=== PATIENT | male | born 1995 | race Caucasian/White ===

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

== ENCOUNTER → 2017-03-06 | Outpatient (CLI) | payer OTHER ==
[2017-03-06 13:53] LABS: ALBUMIN 4.3 GM/DL (3.4-5.0); AST (GOT) 36 U/L (15-39); BICARBONATE 31.4 MEQ/L (21.0-32.0); BLOOD UREA NITROGEN 12 MG/DL (7-18); CALCIUM 9.3 MG/DL (8.5-10.1); CHLORIDE 105 MEQ/L (98-107); CHOLESTEROL 199 MG/DL (120-200); GLOMERULAR FILTRATION RATE 125 ML/MIN (>89); GLUCOSE,FASTING 85 MG/DL (74-99); SODIUM (NA) 140 MEQ/L (136-145)
[2017-03-06 14:02] LABS: ALKALINE PHOSPHATASE 143 U/L (45-117); ALT (GPT) 73 U/L (9-52); CHOLESTEROL/ HDL RATIO 3.56 RATIO; FREE T4 0.98 NG/DL (0.76-1.46); HDL CHOLESTEROL 55.8 MG/DL (40.0-60.0); LDL CHOLESTEROL 125 MG/DL (0-99); TOTAL BILIRUBIN ADULT 0.4 MG/DL (0.2-1.0); TOTAL PROTEIN 7.7 GM/DL (6.4-8.2); TRIGLYCERIDES 90 MG/DL (42-150)
[2017-03-07 19:53] LABS: C-PEPTIDE 2.47 ng/mL (0.80-3.85)
== END ==
LOC: PLAB 09:45
DX: E23.0 Hypopituitarism (principal)
CPT/HCPCS: 36415; 80053; 80061; 83525; 84305; 84439; 84443; 84681

== ENCOUNTER 2017-08-11 22:23 | Observation (INO) | payer OTHER ==
[~2017-08-11] VITALS: Ht 188 cm; Wt 130.3 kg
[2017-08-11 22:30] VITALS: BP 139/74; PULSE 88; RESP 20; TEMP 97.7; O2SAT 96
--- NOTE | 2017-08-11 22:50 | PD ---
HPI Chief Complaint: Foreign Body Time Seen by Provider: 22:44 Travel History International Travel<30 days: No Contact w/Intl Traveler<30days: No Traveled to known affect area: No History of Present Illness HPI 22-year-old male presents to the emergency department for complaint of retained esophageal foreign body. Patient has pre-existing history of retained esophageal foreign body secondary to fluid bolus requiring EGD evaluation and fluid bolus removal or dental passage into the stomach. Patient has pre- existing history of eosinophilic esophagitis with abnormal narrowing of the esophagus and esophagitis changes of the GE junction per previous procedure note by his spray drier Dr. phillip thompson. Patient has not had esophageal dilatation in the past. The patient rates his discomfort 0/10 intensity. Patient states symptoms began after eating chicken around 7 PM and then noticing that he could not ingest any further food and attempted to induce vomiting without success and to drink bolus of water that subsequently he also vomited. Patient continues to have foreign body sensation and continues to have to expectorate saliva. No drooling or airway compromise. No report of stridor or hoarseness. No chest pain. Patient is otherwise unable to identify exacerbating or alleviating factors. PFSH Past Medical History Narrative Medical Esophageal stricture eosinophilic esophagitis; tonsillectomy; no tobacco use; nursing notes reviewed Cardiovascular Problems: No Developmental Delay: No Gastrointestinal Disorders: Yes ("ESOPHAGEAL SPASMS" PER MOM) Genitourinary: No Neurologic: No Respiratory: No Immunizations Current: Yes Tetanus Vaccination: < 5 Years Influenza Vaccination: No Past Surgical History Abdominal Surgery: No Cardiac Surgery: No Ear Surgery: No Endocrine Surgery: Yes (tonsilectomy) Eye Surgery: No Genitourinary Surgery: No Gynecologic Surgery: No Neurologic Surgery: No Oral Surgery: No Thoracic Surgery: No Tonsillectomy: Yes Valve Replacement: No Other Surgery: Yes Social History Alcohol Use: Yes (OCC) Tobacco Use: No Substance Use: No Allergies-Medications (Allergen,Severity, Reaction): Coded Allergies: No Known Allergies (Verified Allergy, Unknown, 08/11/17) Reported Meds & Prescriptions Reported Meds & Active Scripts Active Reported Zyrtec 10 Mg Tab (Cetirizine HCl) 10 Mg Tab 10 Mg PO DAILY PRN Omnitrope (Somatropin) 10 Mg/1.5 Ml Inj 3.3 Mg SQ/IV HS Review of Systems Except as stated in HPI: all other systems reviewed are Neg Physical Exam Narrative GENERAL: Well-developed well-nourished male in no acute distress no respiratory distress no stridor or hoarseness. SKIN: Warm and dry. HEAD: Normocephalic. EYES: No scleral icterus. No injection or drainage. ENT: Mucous membranes moist airway is patent intermittent the patient is spitting out saliva NECK: Supple, trachea midline. No JVD or lymphadenopathy. CARDIOVASCULAR: Regular rate and rhythm without murmurs, gallops, or rubs. RESPIRATORY: Breath sounds equal bilaterally. No accessory muscle use. GASTROINTESTINAL: Abdomen soft, non-tender, nondistended. MUSCULOSKELETAL: No cyanosis, or edema. BACK: Nontender without obvious deformity. No CVA tenderness. Data Data Last Documented VS Vital Signs Date Time Temp Pulse Resp B/P (MAP) Pulse Ox O2 Delivery O2 Flow Rate FiO2 08/11/17 22:39 18 08/11/17 22:30 97.7 88 139/74 (95) 96 Orders Orders ^ Saline Lock (08/11/17 22:44) Metoclopramide Inj (Reglan Inj) (08/11/17 23:00) Glucagon Inj (Glucagon Inj) (08/11/17 23:00) Complete Blood Count With Diff (08/11/17 22:54) Act Partial Throm Time (Ptt) (08/11/17 22:54) Prothrombin Time / Inr (Pt) (08/11/17 22:54) Sodium Chlor 0.9% 1000 Ml Inj (Ns 1000 M (08/11/17 23:00) Basic Metabolic Panel (Bmp) (08/11/17 22:54) Place In Observation (08/11/17 ) Vital Signs (Adult) Q4H (08/11/17 22:56) Activity Oob Ad Bia (08/11/17 22:56) Intake + Output STEPHON.QSHIFT (08/11/17 22:56) Diet Npo (08/12/17 Breakfast) Sodium Chlor 0.9% 1000 Ml Inj (Ns 1000 M (08/11/17 22:56) Sodium Chloride 0.9% Flush (Ns Flush) (08/11/17 23:00) Sodium Chloride 0.9% Flush (Ns Flush) (08/12/17 09:00) Metoclopramide Inj (Reglan Inj) (08/11/17 23:00) Comprehensive Metabolic Panel (08/12/17 06:00) Complete Blood Count With Diff (08/12/17 06:00) Scd Bilateral/Knee High STEPHON.BID (08/11/17 22:56) Chon Bilateral/Knee High STEPHON.QSHIFT (08/11/17 23:00) Morphine Inj (Morphine Inj) (08/11/17 23:00) Morphine Inj (Morphine Inj) (08/11/17 23:00) Docusate Sodium-Senna (Hailey-Colace) (08/12/17 09:00) Magnesium Hydroxide Liq (Milk Of Magnesi (08/11/17 23:00) Sennosides (Senokot) (08/11/17 23:00) Bisacodyl Supp (Dulcolax Supp) (08/11/17 23:00) Lactulose Liq (Lactulose Liq) (08/11/17 23:00) Admit Order (Ed Use Only) (08/11/17 ) Vital Signs (Adult) Q4H (08/11/17 23:03) Activity Bed Rest (08/11/17 23:03) Notify Dr: Other (08/11/17 23:03) Consult Gastroenterology (08/11/17 ) Labs Laboratory Tests Test 08/11/17 22:58 White Blood Count 7.4 TH/MM3 Red Blood Count 5.04 MIL/MM3 Hemoglobin 15.2 GM/DL Hematocrit 45.7 % Mean Corpuscular Volume 90.8 FL Mean Corpuscular Hemoglobin 30.1 PG Mean Corpuscular Hemoglobin Concent 33.2 % Red Cell Distribution Width 11.5 % Platelet Count 223 TH/MM3 Mean Platelet Volume 8.8 FL Neutrophils (%) (Auto) 37.9 % Lymphocytes (%) (Auto) 45.6 % Monocytes (%) (Auto) 6.8 % Eosinophils (%) (Auto) 9.1 % Basophils (%) (Auto) 0.6 % Neutrophils # (Auto) 2.8 TH/MM3 Lymphocytes # (Auto) 3.4 TH/MM3 Monocytes # (Auto) 0.5 TH/MM3 Eosinophils # (Auto) 0.7 TH/MM3 Basophils # (Auto) 0.0 TH/MM3 CBC Comment DIFF FINAL Differential Comment Prothrombin Time 10.8 SEC Prothromb Time International Ratio 1.1 RATIO Activated Partial Thromboplast Time 27.5 SEC Blood Urea Nitrogen 12 MG/DL Creatinine 0.85 MG/DL Random Glucose 91 MG/DL Calcium Level 8.9 MG/DL Sodium Level 141 MEQ/L Potassium Level 3.8 MEQ/L Chloride Level 106 MEQ/L Carbon Dioxide Level 27.9 MEQ/L Anion Gap 7 MEQ/L Estimat Glomerular Filtration Rate 115 ML/MIN MDM Medical Decision Making Medical Screen Exam Complete: Yes Emergency Medical Condition: Yes Medical Record Reviewed: Yes Differential Diagnosis Retained esophageal foreign body, esophageal stenosis Narrative Course IV access obtained patient administered Reglan 10 mg IV and glucagon 1 MG IV basic labs collected; call placed to gastroenterology patient's case discussed with Dr. Mcclure -- aware patient h/o esophageal stricture and prior EGD by Dr Del Castillo ---recommends patient to be admitted to medicine service with consult to Dr. Morse in the a.m. for upper endoscopy and removal of foreign body but does concur with ongoing administration of glucagon discussed with Dr Florez @ 23:[address]clure --aware no relief following glucagon and reglan --will remove fb in AM, not tonight Physician Communication Physician Communication Discussed with Dr. Mcclure; call placed to Dr Florez's service Diagnosis Primary Impression: Esophageal foreign body Qualified Codes: T18.108A - Unspecified foreign body in esophagus causing other injury, initial encounter Admitting Information Admitting Physician Requests: Observation Melissa Johnson MD Aug 11, 2017 22:50
[2017-08-11] MEDS ORDERED: BISACODYL 10 MG SUPP RECTAL PRN (23:00)
[2017-08-11] MEDS ORDERED: SENNOSIDES 8.6 MG TAB PO PRN (23:00)
[2017-08-11] MEDS ORDERED: METOCLOPRAMIDE HCL 10 MG/2 ML VIAL IV PUSH PRN (23:00)
[2017-08-11] MEDS ORDERED: SODIUM CHLOR 0.9% 1000 ML INJ 1,000 ML IV SCH (23:00)
[2017-08-11] MEDS ORDERED: LACTULOSE SYRUP 20 GM/30 ML CUP PO PRN (23:00)
[2017-08-11] MEDS ORDERED: METOCLOPRAMIDE HCL 10 MG/2 ML VIAL IV PUSH ONE (23:00)
[2017-08-11] MEDS ORDERED: MAGNESIUM HYDROXIDE SUSP 30 ML CUP PO PRN (23:00)
[2017-08-11] MEDS ORDERED: MORPHINE SULFATE 2 MG/ML SYRINGE IV PUSH PRN ×2 (23:00)
[2017-08-11] MEDS ORDERED: GLUCAGON 1 MG/ML VIAL IV PUSH ONE (23:00)
[2017-08-11] MEDS ORDERED: SODIUM CHLORIDE 0.9% FLUSH 10 ML FLUSH IV FLUSH PRN (23:00)
[2017-08-11] MEDS: SODIUM CHLOR 0.9% 1000 ML INJ 1,000 ML IV SCH (23:05)
[2017-08-11 23:15] LABS: AUTOMATED NEUTROPHIL # 2.8 TH/MM3 (1.8-7.7); BASOPHIL % 0.6 % (0.0-2.0); EOSINOPHIL # 0.7 TH/MM3 (0-0.4); EOSINOPHIL % 9.1 % (0.0-4.0); HEMATOCRIT 45.7 % (39.0-51.0); HEMOGLOBIN 15.2 GM/DL (13.0-17.0); LYMPH % 45.6 % (9.0-44.0); LYMPHOCYTE # 3.4 TH/MM3 (1.0-4.8); MEAN CELL VOLUME 90.8 FL (80.0-100.0); MEAN CORPUSCULAR HEMOGLOBIN 30.1 PG (27.0-34.0); MEAN CORPUSCULAR HGB CONC 33.2 % (32.0-36.0); MEAN PLATELET VOLUME 8.8 FL (7.0-11.0); MONO % 6.8 % (0.0-8.0); MONOCYTE # 0.5 TH/MM3 (0-0.9); NEUT % 37.9 % (16.0-70.0); PLATELET COUNT 223 TH/MM3 (150-450); RED BLOOD COUNT 5.04 MIL/MM3 (4.50-5.90); RED CELL DISTRIBUTION WIDTH 11.5 % (11.6-17.2); WHITE BLOOD COUNT 7.4 TH/MM3 (4.0-11.0)
[2017-08-11 23:24] LABS: BICARBONATE 27.9 MEQ/L (21.0-32.0); CALCIUM 8.9 MG/DL (8.5-10.1)
[2017-08-11 23:27] LABS: INTERNATIONAL NORMALIZED RATIO 1.1 RATIO; PROTHROMBIN TIME - PATIENT 10.8 SEC (9.8-11.6)
[2017-08-11 23:28] LABS: CREATININE 0.85 MG/DL (0.60-1.30)
[2017-08-12 04:20] VITALS: BP 124/78; PULSE 88; RESP 16; O2SAT 98
[2017-08-12 06:16] VITALS: BP 130/65; PULSE 60; RESP 16
[2017-08-12 06:22] LABS: AUTOMATED NEUTROPHIL # 3.1 TH/MM3 (1.8-7.7); BASOPHIL # 0.1 TH/MM3 (0-0.2); BASOPHIL % 0.7 % (0.0-2.0); EOSINOPHIL # 0.7 TH/MM3 (0-0.4); EOSINOPHIL % 8.9 % (0.0-4.0); HEMATOCRIT 42.8 % (39.0-51.0); HEMOGLOBIN 14.2 GM/DL (13.0-17.0); LYMPH % 43.7 % (9.0-44.0); LYMPHOCYTE # 3.3 TH/MM3 (1.0-4.8); MEAN CORPUSCULAR HEMOGLOBIN 29.8 PG (27.0-34.0); MEAN CORPUSCULAR HGB CONC 33.1 % (32.0-36.0); MEAN PLATELET VOLUME 8.4 FL (7.0-11.0); MONO % 7.3 % (0.0-8.0); MONOCYTE # 0.6 TH/MM3 (0-0.9); NEUT % 39.4 % (16.0-70.0); PLATELET COUNT 202 TH/MM3 (150-450); RED BLOOD COUNT 4.76 MIL/MM3 (4.50-5.90); RED CELL DISTRIBUTION WIDTH 11.7 % (11.6-17.2); WHITE BLOOD COUNT 7.8 TH/MM3 (4.0-11.0)
[2017-08-12 06:25] LABS: CHLORIDE 109 MEQ/L (98-107); SODIUM (NA) 141 MEQ/L (136-145)
[2017-08-12 06:28] LABS: CALCIUM 8.6 MG/DL (8.5-10.1)
[2017-08-12 06:29] LABS: ALBUMIN 3.8 GM/DL (3.4-5.0); BICARBONATE 25.7 MEQ/L (21.0-32.0); BLOOD UREA NITROGEN 12 MG/DL (7-18); GLUCOSE,RANDOM 86 MG/DL (74-106)
[2017-08-12 06:32] LABS: ALT (GPT) 49 U/L (9-52); AST (GOT) 25 U/L (15-39); CREATININE 0.79 MG/DL (0.60-1.30); GLOMERULAR FILTRATION RATE 125 ML/MIN (>89)
[2017-08-12 06:34] LABS: TOTAL BILIRUBIN ADULT 0.5 MG/DL (0.2-1.0); TOTAL PROTEIN 6.9 GM/DL (6.4-8.2)
[2017-08-12 06:35] LABS: ALKALINE PHOSPHATASE 105 U/L (45-117)
[2017-08-12] MEDS: SODIUM CHLOR 0.9% 1000 ML INJ 1,000 ML IV SCH (08:23)
--- NOTE | 2017-08-12 08:37 | HHI.HP ---
[facility] Service [facility] Primary Care Physician No Primary Care Physician Admission Diagnosis esophageal FB Diagnoses: (1) Eosinophilic esophagitis Diagnosis: Principal (2) Esophageal foreign body Diagnosis: Principal Chief Complaint: Cannot swallow Travel History International Travel<30 Days: No Contact w/Intl Traveler <30 Da: No Traveled to Known Affected Are: No History of Present Illness Written by Omar Rothman, acting as scribe for Dr. Acosta on 08/12/17 at 08: 35. 22-year-old male with known history of eosinophilic esophagitis who presented to the hospital because he cannot swallow. Patient was in his normal state of health until last night when he is eating dinner and he felt the food gets lodged and he could not swallow. He cannot swallow liquids or solids. Patient had this happen multiple times in the past. He has undergone endoscopy in order to perform dilatation in the past. Since patient cannot swallow anything, he came to emergency department for evaluation. Because the patient' s symptoms did not resolve, it was recommended by ER physician the patient be observed in the hospital with GI consultation for endoscopy. ER physician did speak with the on-call folding machine operator who plans on performing endoscopy this morning. Otherwise pt feels well. Denies any CP/SOB/N/V Review of Systems Gastrointestinal: COMPLAINS OF: Difficulty Swallowing Except as stated in HPI: all other systems reviewed are Neg Past Family Social History Past Medical History Eosinophilic esophagitis Past Surgical History Previous endoscopies for esophageal dilatation Reported Medications Reported Meds & Active Scripts Active Reported Zyrtec 10 Mg Tab (Cetirizine HCl) 10 Mg Tab 10 Mg PO DAILY PRN Omnitrope (Somatropin) 10 Mg/1.5 Ml Inj 3.3 Mg SQ/IV HS Allergies: Coded Allergies: No Known Allergies (Verified Allergy, Unknown, 08/11/17) Family History Family history is reviewed and significant for father with diabetes, does not know his mother's history Social History Patient denies any tobacco alcohol or illicit drugs Physical Exam Vital Signs Vital Signs Date Time Temp Pulse Resp B/P (MAP) Pulse Ox O2 Delivery O2 Flow Rate FiO2 08/12/17 07:56 08/12/17 06:16 60 16 130/65 (86) Room Air 08/12/17 04:20 88 16 124/78 (93) 98 Room Air 08/11/17 22:39 18 08/11/17 22:30 97.7 88 20 139/74 (95) 96 Physical Exam GENERAL: Well-developed, well-nourished, in no acute distress. alert and orientated HEENT: Head is normocephalic without any lesions or masses noted. Facial features are symmetric. Eyes: Pupils equal round reactive to light. Extraocular muscles are intact. Conjunctivae were clear. Oropharyngeal: Pharynx without any erythema edema. Tongue is midline without deviation. Buccal mucosa is moist NECK: Supple without any masses. Trachea midline no deviation. No JVD CARDIAC: Regular rhythm, regular rate. S1/S2 are heard. No murmurs LUNGS: Clear to auscultation bilaterally. No wheeze. ABDOMEN: Soft, nontender. Nondistended. Bowel sounds heard in all 4 quadrants. Negative rebound, negative guarding EXTREMITIES: No edema, pulses are equal bilaterally. NEUROLOGY: Mood and affect appear appropriate. Cranial nerves II through XII grossly intact. Muscle strength 5/5 in upper and lower extremities bilaterally. Laboratory Laboratory Tests Test 08/11/17 22:58 08/12/17 06:12 White Blood Count 7.4 7.8 Red Blood Count 5.04 4.76 Hemoglobin 15.2 14.2 Hematocrit 45.7 42.8 Mean Corpuscular Volume 90.8 90.0 Mean Corpuscular Hemoglobin 30.1 29.8 Mean Corpuscular Hemoglobin Concent 33.2 33.1 Red Cell Distribution Width 11.5 11.7 Platelet Count 223 202 Mean Platelet Volume 8.8 8.4 Neutrophils (%) (Auto) 37.9 39.4 Lymphocytes (%) (Auto) 45.6 43.7 Monocytes (%) (Auto) 6.8 7.3 Eosinophils (%) (Auto) 9.1 8.9 Basophils (%) (Auto) 0.6 0.7 Neutrophils # (Auto) 2.8 3.1 Lymphocytes # (Auto) 3.4 3.3 Monocytes # (Auto) 0.5 0.6 Eosinophils # (Auto) 0.7 0.7 Basophils # (Auto) 0.0 0.1 CBC Comment DIFF FINAL DIFF FINAL Differential Comment Prothrombin Time 10.8 Prothromb Time International Ratio 1.1 Activated Partial Thromboplast Time 27.5 Blood Urea Nitrogen 12 12 Creatinine 0.85 0.79 Random Glucose 91 86 Calcium Level 8.9 8.6 Sodium Level 141 141 Potassium Level 3.8 3.9 Chloride Level 106 109 Carbon Dioxide Level 27.9 25.7 Anion Gap 7 6 Estimat Glomerular Filtration Rate 115 125 Total Protein 6.9 Albumin 3.8 Alkaline Phosphatase 105 Aspartate Amino Transf (AST/SGOT) 25 Alanine Aminotransferase (ALT/SGPT) 49 Total Bilirubin 0.5 Result Diagram: 08/12/1761108/12/17611 Caprini VTE Risk Assessment Caprini VTE Risk Assessment: No/Low Risk (score <= 1) Caprini Risk Assessment Model Point Value = 1 Point Value = 2 Point Value = 3 Point Value = 5 Age 41-60 Minor surgery BMI > 25 kg/m2 Swollen legs Varicose veins or History of unexplained or recurrent spontaneous Oral contraceptives or hormone replacement Sepsis (< 1 month) Serious lung disease, including pneumonia (< 1 month) Abnormal pulmonary function Acute myocardial infarction Congestive heart failure (< 1 month) History of inflammatory bowel disease Medical patient at bed rest Age 61-74 Arthroscopic surgery Major open surgery (> 45 min) Laparoscopic surgery (> 45 min) Malignancy Confined to bed (> 72 hours) Immobilizing plaster cast Central venous access Age >= 75 History of VTE Family history of VTE Factor V Leiden Prothrombin [id number] Lupus anticoagulant Anticardiolipin antibodies Elevated serum homocysteine Heparin-induced thrombocytopenia Other congenital or acquired thrombophilia Stroke (< 1 month) Elective arthroplasty Hip, pelvis, or leg fracture Acute spinal cord injury (< 1 month) Prophylaxis Regimen Total Risk Factor Score Risk Level Prophylaxis Regimen 0-1 Low Early ambulation 2 Moderate Order ONE of the following: *Sequential Compression Device (SCD) *Heparin 5000 units SQ BID 3-4 Higher Order ONE of the following medications: *Heparin 5000 units SQ TID *Enoxaparin/Lovenox 40 mg SQ daily (WT < 150 kg, CrCl > 30 mL/min) *Enoxaparin/Lovenox 30 mg SQ daily (WT < 150 kg, CrCl > 10-29 mL/min) *Enoxaparin/Lovenox 30 mg SQ BID (WT < 150 kg, CrCl > 30 mL/min) AND/OR *Sequential Compression Device (SCD) 5 or more Highest Order ONE of the following medications: *Heparin 5000 units SQ TID (Preferred with Epidurals) *Enoxaparin/Lovenox 40 mg SQ daily (WT < 150 kg, CrCl > 30 mL/min) *Enoxaparin/Lovenox 30 mg SQ daily (WT < 150 kg, CrCl > 10-29 mL/min) *Enoxaparin/Lovenox 30 mg SQ BID (WT < 150 kg, CrCl > 30 mL/min) AND *Sequential Compression Device (SCD) Assessment and Plan Assessment and Plan Eosinophilic esophagitis with recurrent obstruction/stricture -Patient be kept n.p.o. at this time -Hoop Flaring Machine Operator Helper has been consulted for further recommendations and plans for endoscopy today -Advance diet per folding machine operator after procedure performed DVT prevention -Low risk, early ambulation This note was transcribed by pradip Rothman. I, Dr. Kezia Acosta personally performed the history, physical exam, and medical decision making; and confirmed the accuracy of the information in the transcribed note. Authenticated by Dr. Kezia Acosta on 08/12/17 at 08:35. Discharge disposition Discharge home in stable condition Activity: Ad juan. Diet: Regular diet Medication per medication reconciliation Follow-up with primary medical doctor in 1 week Code Status Full code Discussed Condition With Patient, Dr. Morse Problem Qualifiers (1) Esophageal foreign body: Qualified Codes: T18.108A - Unspecified foreign body in esophagus causing other injury, initial encounter Omar Rothman Aug 12, 2017 08:37 Kezia Acosta MD Aug 12, 2017 09:18
[2017-08-12 08:47] VITALS: BP 133/74; PULSE 59; RESP 14; TEMP 96.5; O2SAT 96
[2017-08-12] MEDS ORDERED: DOCUSATE SODIUM 50 MG/SENNA 8.6 MG TAB PO SCH (09:00)
[2017-08-12] MEDS ORDERED: SODIUM CHLORIDE 0.9% FLUSH 10 ML FLUSH IV FLUSH SCH (09:00)
[2017-08-12 10:05] VITALS: BP 143/94; PULSE 58; RESP 16; TEMP 98.5; O2SAT 97
[2017-08-12] MEDS ORDERED: METOPROLOL TARTRATE 25 MG TAB PO PRN (10:15)
[2017-08-12] MEDS ORDERED: LACTATED RINGER'S 1000 ML IV PRN (10:15)
[2017-08-12] MEDS ORDERED: SODIUM CHLORID 0.9% 500 ML IV PRN (10:15)
[2017-08-12] MEDS ORDERED: POVIDONE IODINE 5% (ANTISEPSIS KIT) 4 APPLICATIONS EACH NARE PRN (10:15)
[2017-08-12] MEDS ORDERED: CHLORHEXIDINE GLUCONATE 2 % 1 PACK (2 CLOTHS) TOPICAL PRN (10:15)
--- NOTE | 2017-08-12 11:33 | MB ---
cc: Petra Morse MD DATE: 08/12/2017 REASON FOR REFERRAL: Dysphagia. Thank you for the consultation. HISTORY OF PRESENT ILLNESS: A 22-year-old gentleman who has a history of eosinophilic esophagitis. The patient has had previous dysphagia with food getting stuck in the past. He was treated with a steroid inhaler, but the patient did not keep up with it, not taking it on a regular basis. So, yesterday he was eating and he felt that the chicken was stuck in the mid esophagus. He was able to carry his saliva, but not able to tolerate any food or drink and that is why he came to the hospital. The patient denies any significant problem at this time except feeling some pressure in his chest. PAST MEDICAL HISTORY: Past medical history significant for eosinophilic esophagitis with endoscopy and dilation in the past. MEDICATIONS: Reviewed in the chart. ALLERGIES: NO KNOWN DRUG ALLERGIES. FAMILY HISTORY: History significant for diabetes. SOCIAL HISTORY: Negative for tobacco, drug or alcohol. REVIEW OF SYSTEMS: All 12-point negative except HPI. PHYSICAL EXAMINATION: GENERAL: Alert, oriented. No acute distress. VITAL SIGNS: Stable. HEENT: Pupils round, reactive to light. NECK: Supple. CHEST: Clear to auscultation and percussion. CARDIAC: Regular rate and rhythm. No murmur or gallops. ABDOMEN: Soft, nondistended. Positive bowel sounds. EXTREMITIES: No edema, clubbing or cyanosis. Patient is morbidly obese. LABORATORY DATA: Normal CBC 7.8, hemoglobin 14.2, platelet 202. The white count was 7.8. Liver function tests are normal. Neck soft tissue was unremarkable. ASSESSMENT AND PLAN: 1. A 22-year-old gentleman with eosinophilic esophagitis. The patient will need upper endoscopy today. We will intubate him for the procedure to protect his airway. 2. The patient will need steroid inhalers. 3. Further plan depends on the findings. MD ALESSANDRO Abbott/NILDA , 11:17 AM , 11:32 AM
--- NOTE | 2017-08-12 11:37 | PD.PN.STU ---
Subjective Remarks Patient was seen in the OR for Upper GI EGD. Patient was sedated, intubated, and the tube was held in place. EGD was performed and foreign body was located in the middle esophagus. It was pushed distally into the stomach. Biopsy was performed in the antrum and the proximal esophagus. Objective Vitals Vital Signs Date Time Temp Pulse Resp B/P (MAP) Pulse Ox O2 Delivery O2 Flow Rate FiO2 08/12/17 10:05 98.5 58 16 143/94 (110) 97 08/12/17 08:47 96.5 59 14 133/74 (93) 96 08/12/17 07:56 08/12/17 06:16 60 16 130/65 (86) Room Air 08/12/17 04:20 88 16 124/78 (93) 98 Room Air 08/11/17 22:39 18 08/11/17 22:30 97.7 88 20 139/74 (95) 96 I/O 08/11/17 08/11/17 08/11/17 08/12/17 08/12/17 08/12/17 06:59 14:59 22:59 06:59 14:59 22:59 Intake Total 1000 ml Balance 1000 ml Intake IV Total 1000 ml Result Diagram: 08/12/1712 08/12/17 0612 Other Results Laboratory Tests Test 08/11/17 22:58 08/12/17 06:12 Red Cell Distribution Width 11.5 % (11.6-17.2) Lymphocytes (%) (Auto) 45.6 % (9.0-44.0) Eosinophils (%) (Auto) 9.1 % (0.0-4.0) 8.9 % (0.0-4.0) Eosinophils # (Auto) 0.7 TH/MM3 (0-0.4) 0.7 TH/MM3 (0-0.4) Chloride Level 109 MEQ/L (98-107) Medications and IVs Current Medications Medications (Trade) Dose Ordered Sig/Mildred Route Start Time Stop Time Status Last Admin Sodium Chloride 1,000 ml @ 100 mls/hr Q10H IV 08/11/17 22:56 08/12/17 08:23 (NS Flush) 2 ml UNSCH PRN IV FLUSH 08/11/17 23:00 (NS Flush) 2 ml BID IV FLUSH 08/12/17 09:00 (Reglan Inj) 5 mg Q6H PRN IV PUSH 08/11/17 23:00 (Morphine Inj) 1 mg Q3H PRN IV PUSH 08/11/17 23:00 (Morphine Inj) 2 mg Q3H PRN IV PUSH 08/11/17 23:00 (Hailey-Colace) 1 tab BID PO 08/12/17 09:00 (Milk Of Magnesia Liq) 30 ml Q12H PRN PO 08/11/17 23:00 (Senokot) 17.2 mg Q12H PRN PO 08/11/17 23:00 (Dulcolax Supp) 10 mg DAILY PRN RECTAL 08/11/17 23:00 (Lactulose Liq) 30 ml DAILY PRN PO 08/11/17 23:00 Lactated Ringer's 1,000 ml @ 30 mls/hr Q24H PRN IV 08/12/17 10:15 08/15/17 10:14 Sodium Chloride 500 ml @ 30 mls/hr [id number] PRN IV 08/12/17 10:15 08/15/17 10:14 (Lopressor) 25 mg DIRECTOR EMERGENCY DEPARTMENT PRN PO 08/12/17 10:15 08/15/17 10:14 (Betadine 5% Antisepsis Kit) 1 applic DIRECTOR EMERGENCY DEPARTMENT PRN EACH NARE 08/12/17 10:15 08/15/17 10:14 (Chlorhexidine 2% Cloth) 3 pack DIRECTOR EMERGENCY DEPARTMENT PRN TOPICAL 08/12/17 10:15 08/15/17 10:14 A/P Assessment and Plan 1. Foreign Body. Removed from the esophagus with EGD. 1. Eosinophilic Esophagitis. Continue aerosolized medications. Adam Rodriguez Aug 12, 2017 11:37
[2017-08-12 11:45] VITALS: PULSE 86
--- NOTE | 2017-08-12 12:35 | PD.PROCEDR ---
GI Procedure PROCEDURE performed Upper endoscopy, foreign body removal, biopsy INDICATION FOR PROCEDURE History of eosinophilic esophagitis, dysphagia PROCEDURE: The procedure, risks and benefits were discussed with Mr. White and informed consent was obtained. Anesthesia sedated him with Diprivan. He was placed in the left lateral decubitus position. EGD: The Pentax videoscope was introduced through the oropharynx and advanced to the second portion of the duodenum under direct visualization. Retroflexion was performed in the stomach. There was a foreign body in the mid esophagus that was removed by a net and by pushing it into the stomach, biopsy from the distal esophagus and from the antrum FINDINGS: Foreign body removed by [facility] and by pushing the meat into the stomach, biopsy from the distal esophagus patient has findings consistent with eosinophilic esophagitis Stomach normal Duodenum moderate duodenitis biopsy from the antrum to rule out H. pylori SPECIMENS REMOVED: Distal esophagus Antrum COMPLICATIONS: None PLAN: No NSAIDs Soft diet Budesonide mixed with honey twice a day Follow-up biopsy No NSAIDs Protonix 40 mg daily Return to clinic in 2 weeks Petra Morse MD Aug 12, 2017 12:35
[2017-08-12] MEDS ORDERED: MIDAZOLAM HCL 2 MG/2 ML VIAL ONE (13:06)
[2017-08-12 14:07] VITALS: BP 123/78; PULSE 76; RESP 14; TEMP 96.8; O2SAT 98
--- NOTE | 2017-08-12 15:27 | HHI.DCPOC ---
Discharge Care Plan Diagnosis: (1) Eosinophilic esophagitis (2) Esophageal foreign body Goals to Promote Your Health * To prevent worsening of your condition and complications * To maintain your health at the optimal level Directions to Meet Your Goals Take your medications as prescribed Follow your dietary instruction Follow activity as directed Keep your appointments as scheduled Take your immunizations and boosters as scheduled If your symptoms worsen call your PCP, if no PCP go to Urgent Care Center or Emergency Room Smoking is Dangerous to Your Health. Avoid second hand smoke Call the 24-hour hour crisis hotline for domestic abuse at Omar Rothman Aug 12, 2017 15:27
[2017-08-12] MEDS ORDERED: BUDE3CAP PO (15:29)
== END 2017-08-12 16:10 | disposition home or self-care (01) ==
LOC: PHED 22:23 → PHEDA 23:06 → PH3A 08-12 07:50
PROVIDERS: ADMIT Hospitalist; ATTEND Hospitalist
DX: T18.108A Unspecified foreign body in esophagus causing other injury, initial encounter (principal); K20.0 Eosinophilic esophagitis; E66.01 Morbid (severe) obesity due to excess calories
CPT/HCPCS: 00731; 43239; 43247; 80048; 80053; 85025; 85610; 85730; 88305; 88312; 96361; 96374; 96375; 99285; G0378; J2250; J2765; J7030; J1610